=== PATIENT | male | born 1960 | race Hispanic/Latino ===

== ENCOUNTER 2018-06-16 12:21 | Emergency (ER) | payer SELFPAY ==
--- NOTE | 2018-06-16 12:33 | Emergency Department Report ---
Blank Doc - Documentation Documentation: This is a 58-year-old male that presents with URI symptoms and bilateral earac hes. Stated has decreased hearing. This initial assessment/diagnostic orders/clinical plan/treatment(s) is/are subject to change based on patient's health status, clinical progression and re-assessment by fellow clinical providers in the ED. Further treatment and workup at subsequent clinical providers discretion. Patient/guardians urged not to elope from the ED as their condition may be serious if not clinically assessed and managed. Initial orders include: 1- Patient sent to [facility] for further evaluation and treatment 2- cXR
[2018-06-16 12:36] VITALS: BP 114/43
--- NOTE | 2018-06-16 15:39 | XRay Report ---
PROCEDURE: XR CHEST ROUTINE 2V TECHNIQUE: Chest radiograph, PA and lateral views. HISTORY: cough COMPARISONS: None currently available. FINDINGS: Cardiac silhouette is within normal limits. There is no effusion. There is no pneumothorax. There is no consolidation. There are no suspicious osseous lesions. IMPRESSION: * No acute cardiopulmonary findings. This document is electronically signed by Jeffrey Reardon MD., June 16 2018 03:38:06 PM ET
== END 2018-06-16 12:35 | disposition left against medical advice (07) ==
LOC: ED 12:21
DX: H92.03 Otalgia, bilateral (principal); Z53.21 Procedure and treatment not carried out due to patient leaving prior to being seen by health care provider
CPT/HCPCS: 71046

== ENCOUNTER 2018-06-17 10:49 | Emergency (ER) | payer SELFPAY ==
[2018-06-17 10:54] VITALS: BP 109/65
[2018-06-17] MEDS ORDERED: ZOFRAN ODT PO ONE (13:07)
[2018-06-17] MEDS ORDERED: NORCO 5/325 PO ONE (13:07)
--- NOTE | 2018-06-17 13:44 | Emergency Department Report ---
ED ENT HPI - General Chief complaint: Earache Stated complaint: EARACHE Time Seen by Provider: 06/17/18 12:03 Source: patient Mode of arrival: Ambulatory Limitations: No Limitations - History of Present Illness Initial comments: Patient complains of right ear pain that started approximately 7-10 days ago following a upper respiratory tract infection. Patient states he feels like his eardrum has burst. Patient denies headache or trauma. Patient states she's been putting alcohol and peroxide into his right ear which has increased the pain MD complaint: ear pain -: Sudden Location: R ear Severity: moderate Severity scale (0 -10): 6 Quality: aching, sharp Consistency: constant Improves with: none Worsens with: none Context- Ear: recent illness - Related Data Previous Rx's Medication Instructions Recorded Last Taken Type Amoxicillin [Amoxicillin TAB] 875 mg PO BID 10 Days #20 tablet 11/17/17 Unknown Rx Cetirizine HCl [ZyrTEC] 10 mg PO QDAY 21 Days #21 11/17/17 Unknown Rx tab.rapdis Codeine/Butalbital/ASA/Caffein 1 each PO Q8H PRN #12 capsule 11/17/17 Unknown Rx [Fiorinal with Codeine #3 Cap] Fluticasone [Flonase] 1 spray NS QDAY 14 Days #1 bottle 11/17/17 Unknown Rx Ondansetron [Zofran Odt] 4 mg PO Q6H PRN #20 tab.rapdis 11/17/17 Unknown Rx Acetaminophen/Codeine [Tylenol 1 tab PO Q6H PRN #15 tab 06/17/18 Unknown Rx /Codeine # 3 tab] predniSONE [Deltasone] 20 mg PO DAILY #15 tablet 06/17/18 Unknown Rx traMADol [Ultram] 50 mg PO Q6HR PRN #24 tablet 06/17/18 Unknown Rx Allergies Allergy/AdvReac Type Severity Reaction Status Date / Time No Known Allergies Allergy Unverified 11/17/17 11:24 ED Dental HPI - General Chief complaint: Earache Stated complaint: EARACHE Time Seen by Provider: 06/17/18 12:03 Source: patient Mode of arrival: Ambulatory Limitations: No Limitations - Related Data Previous Rx's Medication Instructions Recorded Last Taken Type Amoxicillin [Amoxicillin TAB] 875 mg PO BID 10 Days #20 tablet 11/17/17 Unknown Rx Cetirizine HCl [ZyrTEC] 10 mg PO QDAY 21 Days #21 11/17/17 Unknown Rx tab.rapdis Codeine/Butalbital/ASA/Caffein 1 each PO Q8H PRN #12 capsule 11/17/17 Unknown Rx [Fiorinal with Codeine #3 Cap] Fluticasone [Flonase] 1 spray NS QDAY 14 Days #1 bottle 11/17/17 Unknown Rx Ondansetron [Zofran Odt] 4 mg PO Q6H PRN #20 tab.rapdis 11/17/17 Unknown Rx Acetaminophen/Codeine [Tylenol 1 tab PO Q6H PRN #15 tab 06/17/18 Unknown Rx /Codeine # 3 tab] predniSONE [Deltasone] 20 mg PO DAILY #15 tablet 06/17/18 Unknown Rx traMADol [Ultram] 50 mg PO Q6HR PRN #24 tablet 06/17/18 Unknown Rx Allergies Allergy/AdvReac Type Severity Reaction Status Date / Time No Known Allergies Allergy Unverified 11/17/17 11:24 ED Review of Systems ROS: Stated complaint: EARACHE Other details as noted in HPI Comment: All other systems reviewed and negative Constitutional: denies: chills, fever Eyes: denies: eye pain, eye discharge, vision change ENT: ear pain. denies: throat pain Respiratory: denies: cough, shortness of breath, wheezing Cardiovascular: denies: chest pain, palpitations Endocrine: no symptoms reported Gastrointestinal: denies: abdominal pain, nausea, diarrhea Genitourinary: denies: urgency, dysuria Musculoskeletal: denies: back pain, joint swelling, arthralgia Skin: denies: rash, lesions Neurological: denies: headache, weakness, paresthesias Psychiatric: denies: anxiety, depression Hematological/Lymphatic: denies: easy bleeding, easy bruising ED Past Medical Hx - Past Medical History Previous Medical History?: No - Surgical History Past Surgical History?: Yes Additional Surgical History: screws/pins to back; TMJ, colon - Social History Smoking Status: Current Every Day Smoker Substance Use Type: None - Medications Home Medications: Home Medications Medication Instructions Recorded Confirmed Last Taken Type Amoxicillin [Amoxicillin TAB] 875 mg PO BID 10 Days #20 tablet 11/17/17 Unknown Rx Cetirizine HCl [ZyrTEC] 10 mg PO QDAY 21 Days #21 11/17/17 Unknown Rx tab.rapdis Codeine/Butalbital/ASA/Caffein 1 each PO Q8H PRN #12 capsule 11/17/17 Unknown Rx [Fiorinal with Codeine #3 Cap] Fluticasone [Flonase] 1 spray NS QDAY 14 Days #1 bottle 11/17/17 Unknown Rx Ondansetron [Zofran Odt] 4 mg PO Q6H PRN #20 tab.rapdis 11/17/17 Unknown Rx Acetaminophen/Codeine [Tylenol 1 tab PO Q6H PRN #15 tab 06/17/18 Unknown Rx /Codeine # 3 tab] predniSONE [Deltasone] 20 mg PO DAILY #15 tablet 06/17/18 Unknown Rx traMADol [Ultram] 50 mg PO Q6HR PRN #24 tablet 06/17/18 Unknown Rx ED Physical Exam - General Limitations: No Limitations General appearance: alert, in no apparent distress - Head Head exam: Present: atraumatic, normocephalic - Eye Eye exam: Present: normal appearance, PERRL, EOMI - ENT ENT exam: Present: mucous membranes moist, other (ruptured marginal tympanic membrane right side with no erythema of the ear canal. No drainage of blood from the ruptured tympanic membrane) - Neck Neck exam: Present: normal inspection - Respiratory Respiratory exam: Present: normal lung sounds bilaterally. Absent: respiratory distress - Rectal Rectal exam: Present: deferred - Extremities Exam Extremities exam: Present: normal inspection - Back Exam Back exam: Present: normal inspection - Neurological Exam Neurological exam: Present: alert, oriented X3, CN II-XII intact. Absent: motor sensory deficit - Psychiatric Psychiatric exam: Present: normal affect, normal mood - Skin Skin exam: Present: warm, dry, intact, normal color. Absent: rash ED Course Vital Signs 06/17/18 10:53 Temperature 97.9 F Pulse Rate 94 H Respiratory 20 Rate Blood Pressure 109/65 O2 Sat by Pulse 98 Oximetry ED Medical Decision Making - Medical Decision Making Discussed results and plan of care with patient Critical care attestation.: If time is entered above; I have spent that time in minutes in the direct care of this critically ill patient, excluding procedure time. ED Disposition Clinical Impression: Tympanic membrane perforation, Otalgia of right ear Disposition: DC-01 TO HOME OR SELFCARE Is pt being admited?: No Does the pt Need Aspirin: No Condition: Stable Instructions: Ruptured Eardrum (ED) Additional Instructions: return if worse Prescriptions: predniSONE [Deltasone] 20 mg PO DAILY #15 tablet Acetaminophen/Codeine [Tylenol /Codeine # 3 tab] 1 tab PO Q6H PRN #15 tab PRN Reason: pain traMADol [Ultram] 50 mg PO Q6HR PRN #24 tablet PRN Reason: Pain Referrals: [facility] [Other] - 3-5 Days [facility] [Provider Group] - 3-5 Days [facility] [Provider Group] - 3-5 Days [facility] [Outside] - 3-5 Days Time of Disposition: 13:43
== END 2018-06-17 14:42 | disposition home or self-care (01) ==
LOC: ED 10:49
DX: H72.91 Unspecified perforation of tympanic membrane, right ear (principal); F17.200 Nicotine dependence, unspecified, uncomplicated
CPT/HCPCS: 99282; Q0162